=== PATIENT | male | born 2000 | race Caucasian/White ===

== ENCOUNTER 2023-03-25 17:42 | Emergency (ER) | payer OTHER ==
[2023-03-25] MEDS ORDERED: HALOPERIDOL 5MG/ML 1ML VIAL IM ONE (17:50)
[2023-03-25] MEDS ORDERED: diphenhydrAMINE 50MG/ML VIAL IM ONE (17:50)
[2023-03-25 18:10] LABS: VENOUS BASE EXCESS -8.8 (-2.0-2.0); VENOUS HCO3 16.6 MMOL/L (23.0-27.0); VENOUS O2 SATURATION 96.7 % (60.0-80.0); VENOUS PARTIAL PRESSURE O2 98.8 mmHg (30.0-50.0); VENOUS PH 7.294 UNITS (7.330-7.430); VENOUS STANDARD HCO3 17.6 MMOL/L; VENOUS TOTAL CO2 17.7 MMOL/L (24.0-28.0)
[2023-03-25 18:20] LABS: HEMATOCRIT 47.7 % (42.0-52.0); HEMOGLOBIN 16.6 g/dl (13.5-17.5); MEAN CORPUSCULAR HEMOGLOBIN 28.9 pg (27.0-33.0); MEAN CORPUSCULAR HGB CONC 34.8 g/dl (32.0-36.5); MEAN CORPUSCULAR VOLUME 83.1 fl (80.0-96.0); PLATELET COUNT, AUTOMATED 436 10^3/uL (150-450); RED BLOOD COUNT 5.74 10^6/uL (4.30-6.10); WHITE BLOOD COUNT 17.7 10^3/uL (4.0-10.0)
[2023-03-25 18:37] LABS: ETHYL ALCOHOL (ETHANOL) 0.261 % (0.000-0.010)
[2023-03-25 18:38] LABS: ACETAMINOPHEN LEVEL < 2.0 UG/ML (10.0-20.0); ALBUMIN 4.9 G/DL (3.2-5.2); ALKALINE PHOSPHATASE 83 U/L (46-116); ALT/SGPT 51 U/L (7.0-40); AST/SGOT 58 U/L (<34); BILIRUBIN,DIRECT 0.3 MG/DL (<0.4); BILIRUBIN,TOTAL 0.7 MG/DL (0.3-1.2); BLOOD UREA NITROGEN 11 MG/DL (9-23); CALCIUM LEVEL 9.2 MG/DL (8.5-10.1); CARBON DIOXIDE LEVEL 17 MMOL/L (20-31); CHLORIDE LEVEL 101 MMOL/L (98-107); CREATININE FOR GFR 1.11 MG/DL (0.70-1.30); GLOMERULAR FILTRATION RATE > 60.0 (>60); GLUCOSE, FASTING 122 MG/DL (60-100); POTASSIUM SERUM 3.7 MMOL/L (3.5-5.1); SALICYLATE LEVEL < 3.0 MG/DL (<30); SODIUM LEVEL 139 MMOL/L (136-145); TOTAL PROTEIN 8.5 G/DL (5.7-8.2)
[2023-03-25 18:47] LABS: AMPHETAMINES LEVEL URINE NEGATIVE (NEGATIVE); BARBITURATES URINE NEGATIVE (NEGATIVE); CANNABINOIDS URINE NEGATIVE (NEGATIVE); COCAINE METABOLITE URINE NEGATIVE (NEGATIVE); METHADONE URINE NEGATIVE (NEGATIVE); OPIATES URINE NEGATIVE (NEGATIVE); PHENCYCLIDINE URINE NEGATIVE (NEGATIVE)
[2023-03-25 18:48] LABS: BENZODIAZEPINES URINE NEGATIVE (NEGATIVE)
[2023-03-25 18:56] LABS: ATYPICAL LYMPH 18 % (0-5); BASOPHILS 1 % (0-1); EOSINOPHILS 1 % (0-3); LYMPHOCYTES 15 % (16-44); MONOCYTES 1 % (0-5); NEUTROPHILS 61 % (28-66); NUCLEATED RED BLOOD CELL 1 % (0-0)
[2023-03-25 18:57] LABS: CPK CREATINE PHOSPHOKINASE 2025 U/L (46-171); PLATELET ESTIMATE NORMAL (NORMAL)
[2023-03-25 19:01] LABS: OSMOLALITY SERUM 354 MOSM/KG (275-295)
[2023-03-25] MEDS ORDERED: NS 1,000 ML IV ONE (19:10)
[2023-03-26] MEDS ORDERED: SERT25TA21 (08:43)
[2023-03-26] MEDS ORDERED: LEVE500T5 PO (08:43)
[2023-03-26] MEDS ORDERED: SERT50TA29 (08:43)
[2023-03-26] MEDS ORDERED: SERTRALINE 100 MG TAB PO SCH (09:00)
[2023-03-26] MEDS ORDERED: levETIRAcetam 250MG TABLET (KEPPRA) PO SCH (09:00)
[2023-03-26] MEDS ORDERED: SERTRALINE HCL 25 MG TABLET PO SCH (09:00)
[2023-03-26 12:00] VITALS: BP 135/63; TEMP 97.6; O2SAT 98
== END 2023-03-26 13:01 | disposition home or self-care (01) ==
LOC: M ED 17:42
DX: F10.129 Alcohol abuse with intoxication, unspecified (principal); R45.851 Suicidal ideations; R00.0 Tachycardia, unspecified; Z79.899 Other long term (current) drug therapy
CPT/HCPCS: 80048; 80076; 80143; 80307; 82077; 82550; 82803; 83930; 84443; 85025; 87635; 93005; 93041; 94760; 96361; 96372; 99285; J1200; J1630

== ENCOUNTER → 2023-06-12 | Outpatient (CLI) | payer OTHER ==
[~2023-06-12] MED LIST: LEVE500T5 PO; SERT25TA21; SERT50TA29
[2023-06-12 13:14] LABS: BASO % 0.5 % (0.0-1.0); EOS # 0.1 10^3/uL (0.0-0.5); EOS % 1.4 % (0.0-3.0); HEMATOCRIT 43.5 % (42.0-52.0); HEMOGLOBIN 15.1 g/dl (13.5-17.5); LYMPH # 2.2 10^3/uL (1.5-5.0); LYMPH % 28.1 % (24.0-44.0); MEAN CORPUSCULAR HEMOGLOBIN 29.7 pg (27.0-33.0); MEAN CORPUSCULAR HGB CONC 34.7 g/dl (32.0-36.5); MEAN CORPUSCULAR VOLUME 85.5 fl (80.0-96.0); MONO # 0.6 10^3/uL (0.0-0.8); MONO % 7.7 % (2.0-8.0); NEUTROPHILS # 4.9 10^3/uL (1.5-8.5); NEUTROPHILS % 61.9 % (36.0-66.0); PLATELET COUNT, AUTOMATED 298 10^3/uL (150-450); RED BLOOD COUNT 5.09 10^6/uL (4.30-6.10); WHITE BLOOD COUNT 7.9 10^3/uL (4.0-10.0)
[2023-06-12 13:35] LABS: ALBUMIN 4.2 G/DL (3.2-5.2); ALKALINE PHOSPHATASE 74 U/L (46-116); ALT/SGPT 48 U/L (7.0-40); AST/SGOT 26 U/L (<34); BILIRUBIN,TOTAL 0.3 MG/DL (0.3-1.2); BLOOD UREA NITROGEN 12 MG/DL (9-23); CALCIUM LEVEL 9.6 MG/DL (8.5-10.1); CARBON DIOXIDE LEVEL 29 MMOL/L (20-31); CHLORIDE LEVEL 103 MMOL/L (98-107); CREATININE FOR GFR 0.88 MG/DL (0.70-1.30); GLOMERULAR FILTRATION RATE > 60.0 (>60); GLUCOSE, FASTING 111 MG/DL (60-100); POTASSIUM SERUM 4.1 MMOL/L (3.5-5.1); SODIUM LEVEL 140 MMOL/L (136-145); TOTAL PROTEIN 7.7 G/DL (5.7-8.2)
== END ==
LOC: M PLALAB 10:34
PROVIDERS: ATTEND Psychiatry & Neurology Neurology
DX: R56.9 Unspecified convulsions (principal)